=== PATIENT | female | born 1960 | race African-American/Black ===

== ENCOUNTER 2024-08-04 21:35 | Emergency (ER) | payer MEDICARE ==
[~2024-08-04] VITALS: Ht 162.6 cm; Wt 108.9 kg
[2024-08-04 21:40] VITALS: PULSE 61; RESP 16; TEMP 98.2
[2024-08-04] MEDS ORDERED: AZITHROMYCIN250 MG PO (22:09)
[2024-08-04] MEDS ORDERED: BENZONATATE100 MG PO (22:09)
[2024-08-04 22:27] VITALS: BP 160/80; PULSE 70; RESP 18; TEMP 98; O2SAT 99
== END 2024-08-04 22:34 | disposition home or self-care (01) ==
LOC: FSED 21:41
DX: R05.9 Cough, unspecified (principal); J40 Bronchitis, not specified as acute or chronic; I10 Essential (primary) hypertension; E11.9 Type 2 diabetes mellitus without complications; E78.5 Hyperlipidemia, unspecified
CPT/HCPCS: 99283